=== PATIENT | female | born 1975 | race Hispanic/Latino ===

== ENCOUNTER 2017-09-01 16:42 | Emergency (ER) | payer SELFPAY ==
[2017-09-01 17:47] LABS: RAPID GROUP A STREP NEGATIVE (NEGATIVE)
== END 2017-09-01 18:03 | disposition home or self-care (01) ==
LOC: EDH 16:42
DX: J06.9 Acute upper respiratory infection, unspecified (principal)
CPT/HCPCS: 87804; 87880

== ENCOUNTER 2019-06-02 08:34 | Emergency (ER) | payer SELFPAY ==
[2019-06-02] MEDS ORDERED: HYDROCODONE/ACETAMINOPHEN 5/325 MG TAB ONE (09:05)
[2019-06-02 09:29] LABS: APPEARANCE,URINE Clear (CLEAR); BILIRUBIN,URINE Negative (NEGATIVE); COLOR,URINE Yellow (YELLOW); GLUCOSE, URINE (UA) Negative (NEGATIVE); KETONES,URINE Negative (NEGATIVE); LEUKOCYTE ESTERASE ,URINE Negative (NEGATIVE); NITRATE,URINE Negative (NEGATIVE); OCCULT BLOOD,URINE Negative (NEGATIVE); PROTEIN,URINE Negative (NEGATIVE); UROBILINOGEN,URINE 0.2 mg/dL (0.2-1.0)
[2019-06-02 09:31] LABS: HCG,QUAL RESULT NEGATIVE (NEGATIVE)
== END 2019-06-02 10:03 | disposition home or self-care (01) ==
LOC: EDH 08:34
DX: G89.29 Other chronic pain (principal); M54.6 Pain in thoracic spine; Z87.891 Personal history of nicotine dependence
CPT/HCPCS: 71046; 81003; 81025

== ENCOUNTER 2019-06-25 16:57 | Emergency (ER) | payer SELFPAY ==
[2019-06-25] MEDS ORDERED: ACETAMINOPHEN EXTRA STRENGTH 500 MG TABLET ONE (17:12)
[2019-06-25] MEDS ORDERED: ONDANSETRON ODT 4 MG TAB ONE (17:12)
[2019-06-25] MEDS ORDERED: OCTYL 2-CYANOACRYLATE 1 EACH TP ONE (18:03)
== END 2019-06-25 18:14 | disposition home or self-care (01) ==
LOC: EDH 16:57
DX: S06.0X0A Concussion without loss of consciousness, initial encounter (principal); S16.1XXA Strain of muscle, fascia and tendon at neck level, initial encounter; S01.01XA Laceration without foreign body of scalp, initial encounter; Y04.0XXA Assault by unarmed brawl or fight, initial encounter; Y93.89 Activity, other specified; Y92.098 Other place in other non-institutional residence as the place of occurrence of the external cause; Y99.8 Other external cause status
CPT/HCPCS: 12031

== ENCOUNTER 2021-09-28 16:40 | Emergency (ER) | payer OTHER ==
[~2021-09-28] VITALS: Ht 170.2 cm; Wt 91.6 kg
[2021-09-28] MEDS ORDERED: IBUPROFEN 800 MG TAB PO ONE (17:30)
[2021-09-28] MEDS ORDERED: IBUPROFEN 800 MG TAB ONE (17:49)
[2021-09-28] MEDS ORDERED: IBUP-2070 PO (18:55)
[2021-09-28 19:04] VITALS: BP 140/80
== END 2021-09-28 19:07 | disposition home or self-care (01) ==
LOC: EDH 16:40
DX: S62.175A Nondisplaced fracture of trapezium [larger multangular], left wrist, initial encounter for closed fracture (principal); X58.XXXA Exposure to other specified factors, initial encounter; Y93.89 Activity, other specified; Y92.89 Other specified places as the place of occurrence of the external cause; Y99.8 Other external cause status
CPT/HCPCS: 29125; 73110; 73130

== ENCOUNTER 2021-10-01 20:06 | Emergency (ER) | payer OTHER ==
[~2021-10-01] VITALS: Ht 170.2 cm; Wt 91.2 kg
[~2021-10-01 20:06] MED LIST: IBUP-2070 PO
[2021-10-01 21:03] VITALS: BP 130/92
== END 2021-10-01 22:36 | disposition left against medical advice (07) ==
LOC: EDH 20:06
DX: M25.532 Pain in left wrist (principal); Z53.21 Procedure and treatment not carried out due to patient leaving prior to being seen by health care provider

== ENCOUNTER 2023-08-28 12:18 | Emergency (ER) | payer OTHER ==
[~2023-08-28] VITALS: Ht 170.2 cm; Wt 99.8 kg
[2023-08-28 12:23] VITALS: BP 122/79; PULSE 85; RESP 17
[2023-08-28 13:13] LABS: BASOPHILS # (AUTO) 0.03 K/uL (0.00-0.20); BASOPHILS % (AUTO) 0.5 % (0.0-5.0); EOSINOPHILS # (AUTO) 0.09 K/uL (0.00-0.70); EOSINOPHILS % (AUTO) 1.4 % (0.0-8.0); HEMATOCRIT 40.6 % (36-48); IMMATURE GRANULOCYTE ABSOLUTE 0.02 K/uL (0-1); LYMPHOCYTES # (AUTO) 1.8 K/uL (1.0-4.8); LYMPHOCYTES % (AUTO) 27.5 % (21.0-51.0); MEAN CORPUSCULAR HGB CONC 33.7 g/dL (32.0-36.0); MONOCYTES # (AUTO) 0.3 K/uL (0.1-1.0); NEUTROPHILS # (AUTO) 4.3 K/uL (1.8-7.7); NEUTROPHILS % (AUTO) 65.3 % (40.0-77.0); PLATELET COUNT (AUTO) 310 K/uL (130-400); RED BLOOD CELL COUNT(AUTO) 4.89 MIL/uL (4.00-5.50); RED CELL DISTRIBUTION WIDTH 13.4 % (11.0-15.5); WHITE BLOOD COUNT (AUTO) 6.6 K/uL (4.8-10.8)
[2023-08-28] MEDS ORDERED: ONDANSETRON ODT 4MG TAB SL ONE (13:30)
[2023-08-28] MEDS ORDERED: DEXAMETHASONE SOD PHOSPHATE 4 MG/ML 1ML VIAL IM ONE (13:30)
[2023-08-28] MEDS ORDERED: MECLIZINE HCL 25 MG TABLET PO ONE (13:30)
[2023-08-28] MEDS ORDERED: METH4TAB3 PO (17:01)
[2023-08-28] MEDS ORDERED: MECL-302 PO (17:01)
== END 2023-08-28 17:09 | disposition home or self-care (01) ==
LOC: EDH 12:18
DX: H81.10 Benign paroxysmal vertigo, unspecified ear (principal); I10 Essential (primary) hypertension; H83.09 Labyrinthitis, unspecified ear; Z79.899 Other long term (current) drug therapy; Z98.890 Other specified postprocedural states
CPT/HCPCS: 99284; 84484; 85025; 36415; 96372; 93005; J1100

== ENCOUNTER → 2024-01-21 | Outpatient (CLI) | payer SELFPAY ==
[~2024-01-21] MED LIST changes: +COLC0.6C3 PO; +LISI1TAB51 PO
[2024-01-22 11:14] LABS: ANTI-SCLERODERMA 70 <0.2 AI (0.0-0.9)
== END | disposition home or self-care (01) ==
LOC: LAB 09:15
PROVIDERS: ATTEND Internal Medicine Cardiovascular Disease
DX: I10 Essential (primary) hypertension (principal)
CPT/HCPCS: 36415; 84443; 86038; 86215; 86235; 86431

== ENCOUNTER 2025-07-11 11:23 | Emergency (ER) | payer OTHER, SELFPAY ==
[~2025-07-11] VITALS: Ht 170.2 cm; Wt 104.3 kg
[~2025-07-11 11:23] MED LIST changes: +IBUP-1492 PO; -IBUP-2070 PO
[2025-07-11 11:34] VITALS: BP 154/89; PULSE 89; RESP 16; TEMP 98.2; O2SAT 98
--- NOTE | 2025-07-11 11:38 | ERN ---
ED Note History of Present Illness Stated Complaint: NECK PAIN/ BACK PAIN/ LEFT ARM TINGLES Chief Complaint: Neck Pain Time Seen by MD: 11:27 Dictation: Patient is a 50-year-old female here with multiple complaints to include posterior neck pain she has had for several months with numbness to her left arm. In addition she states she has been short of breath with generalized body weakness for the last several days. No fever no chills no nausea vomiting. She denies any chest pain. She states she has a primary care doctor, however has not seen him in three months. States she has had a prior history of a pericardial effusion and has been seen in the past by Dr. Choe. Allergies: Coded Allergies: No Known Allergies (Unverified Allergy, Unknown, 09/28/21) Home Meds Active Scripts Ibuprofen (Ibuprofen 800 mg Tab) 800 Mg Tab, 800 MG PO Q8H PRN for fever or pain, #30 TAB 0 Refills Prov:YIN MENARD CHEMIST WATER PURIFICATION 07/11/25 Albuterol Sulfate (Ventolin Hfa/Proventil Hfa/Proair Hfa) 90 Mcg Puff, 2 PUFF IH Q4H for WHEEZING, #1 INHALER 0 Refills Prov:YIN MENARD CHEMIST WATER PURIFICATION 07/11/25 Ibuprofen (Ibuprofen) 600 Mg Tablet, 600 MG PO Q8H for 7 Days, #21 TAB 0 Refills Prov:HENRIQUE FARR MD 12/17/23 Colchicine (Colchicine) 0.6 Mg Capsule, 0.6 MG PO DAILY for 30 Days, #30 CAP 0 Refills Prov:HENRIQUE FARR MD 12/17/23 Reported Medications Lisinopril/Hydrochlorothiazide (Lisinopril-Hctz 20-12.5 mg Tab) 20 Mg-12.5 Mg Tablet, 1 EACH PO DAILY, TAB 12/16/23 Past Medical History Past Medical History: Hypertension Additional Past Medical Hx: PERICARDIAL EFFUSION X 2 Surgical History: Other, Surgical History Other: PERICARDIO EFFUSION History: Not Applicable RN Note Reviewed/Agreed w/PFSH: Yes Review of System Dictation CONSTITUTIONAL: Negative except for HPI GB W HEAD/FACE: Negative except for HPI EENT: Negative except for HPI RESPIRATORY: Negative except for HPI shortness a breath GASTROINTESTINAL/ABDOMINAL: Negative except for HPI GENITOURINARY: Negative except for HPI MUSCULOSKELETAL: Negative except for HPI posterior neck pain INTEGUMENTARY: Negative except for HPI NEUROLOGICAL/PSYCH: Negative except for HPI HEMATOLOGIC/LYMPHATIC: Negative except for HPI All Systems Negative, Except as noted above. 13 point review of systems assessed and all negative except for above. Initial Vital Sign VS Vital Signs Date Time Temp Pulse Resp B/P (MAP) Pulse Ox O2 Delivery O2 Flow Rate FiO2 07/11/25 11:28 98.2 89 18 154/97 98 Room Air 0 07/11/25 11:34 21 Physical Exam Dictation A normal exam Vital Signs reviewed General Appearance: Alert, oriented x 3, no acute distress, well developed, nourished. Obese Head and Face: non-traumatic. Eyes: PERRL, pink conjunctivas, eyelid no trauma, anterior chamber with arcus senilis. Ears: Pinnas intact and no signs of trauma or erythema ear canals clear and no discharge TM no erythema Nose: No discharge, no bleeding. Oropharynx: Mouth normal, tongue pink, pharynx clear,no erythema, tonsils no exudates, no abscesses noted, mucous membrane moist Neck: Supple, non-tender, no thyromegaly, no masses, no JVD, no bruits Breast:Deferred Chest:No tenderness, no crepitus, no paradoxical movement, no retractions Lungs:Clear, well-ventilated, symmetric, no rales, no wheezing, no rhonchi, no stridor, good breath sounds bilaterally no tachypnea no retractions Heart: Regular rate, regular rhythm, no murmur, no gallops Vascular: no peripheral edema, Abdomen: Soft, positive bowel sounds, nondistended, no guarding, nontender, no rebound, no masses no hepatomegaly, no splenomegaly, no Boswell's sign, no hernias. Rectal: Deferred Genital: Deferred Neurological: Normal speech, motor function intact, sensory function intact NIH is 0 Musculoskeletal: Neck nontender, full range of motion, back nontender, full range of motion, Extremities: nontender, full range of motion Skin: Color pink, dry, no turgor, no rash, no lacerations, no abrasions, no contusions. Lymphatic: Deferred Results (Laboratory/Radiology) Laboratory/Radiology Laboratory Tests Test 07/11/25 11:47 White Blood Count 6.3 K/uL (4.8-10.8) Red Blood Count 4.97 MIL/uL (4.00-5.50) Hemoglobin 13.7 g/dL (12.0-16.0) Hematocrit 42.0 % (36-48) Mean Corpuscular Volume 84.5 fL (79-99) Mean Corpuscular Hemoglobin 27.6 pg (27.0-33.0) Mean Corpuscular Hemoglobin Concent 32.6 g/dL (32.0-36.0) Red Cell Distribution Width 13.4 % (11.0-15.5) Platelet Count 313 K/uL (130-400) Mean Platelet Volume 10.1 fL (7.5-10.5) Immature Granulocyte % (Auto) 0.2 % (0-1) Neutrophils (%) (Auto) 55.5 % (40.0-77.0) Lymphocytes (%) (Auto) 34.5 % (21.0-51.0) Monocytes (%) (Auto) 7.3 % (3.0-13.0) Eosinophils (%) (Auto) 1.9 % (0.0-8.0) Basophils (%) (Auto) 0.6 % (0.0-5.0) Neutrophils # (Auto) 3.5 K/uL (1.8-7.7) Lymphocytes # (Auto) 2.2 K/uL (1.0-4.8) Monocytes # (Auto) 0.5 K/uL (0.1-1.0) Eosinophils # (Auto) 0.12 K/uL (0.00-0.70) Basophils # (Auto) 0.04 K/uL (0.00-0.20) Absolute Immature Granulocyte (auto 0.01 K/uL (0-1) Nucleated Red Blood Cells 0.0 % (0.0-0.19) Sodium Level 138 mmol/L (136-145) Potassium Level 3.8 mmol/L (3.5-5.1) Chloride Level 101 mmol/L (101-111) Carbon Dioxide Level 29 mmol/L (21-32) Blood Urea Nitrogen 13 mg/dL (7-18) Creatinine 0.6 mg/dL (0.5-1.0) Glomerular Filtration Rate Calc 109 mL/min (>90) Random Glucose 89 mg/dL (70-105) Total Calcium 9.0 mg/dL (8.5-10.1) Troponin I High Sensitivity 8 ng/L (4-50) B-Type Natriuretic Peptide 23 pg/mL (0-100) e Neck, 4 View. CLINICAL HISTORY: Non trauma neck pain with numbness to left arm COMPARISON: None provided. FINDINGS: SOFT TISSUES: Unremarkable. No retropharyngeal soft tissue swelling or gas. EPIGLOTTIS: No epiglottic thickening. BONES: No acute osseous abnormality. IMPRESSION: No acute pathology evident on soft tissue plain films of the neck. /[place] M: CR Chest, 1 View. CLINICAL HISTORY: Non trauma neck pain with numbness to left arm COMPARISON: None provided. FINDINGS: LUNGS: There is no mass, infiltrate, or acute pulmonary abnormality. PLEURAL SPACES: No evidence of pleural effusion or pneumothorax. MEDIASTINUM: The cardiomediastinal silhouette is within normal limits. BONES: No aggressive appearing osseous lesion seen. IMPRESSION: No acute cardiopulmonary pathology is evident. /[place] Labs Reviewed?: Yes EKG Comment: 1148/EKG sinus rhythm/heart rate 80/axis normal/nonspecific changes in anterior leads ED Course ED Course Orders Procedure Category Date Status Time B-Type Natriuretic LAB 07/11/25 Complete Peptide 11:35 Cerv Spine 2-3vws RAD 07/11/25 Resulted 11:35 Cbc With Differential LAB 07/11/25 Complete 11:35 Chest 1vw RAD 07/11/25 Resulted 11:35 12 Lead Ekg Tracing- EKG 07/11/25 Complete Technical 11:35 Troponin I High LAB 07/11/25 Complete Sensitivity 11:35 Basic Metabolic Panel LAB 07/11/25 Complete 11:35 Vital Signs Date Time Temp Pulse Resp B/P (MAP) Pulse Ox O2 Delivery O2 Flow Rate FiO2 07/11/25 11:34 98.2 89 16 154/89 98 Room Air* 0 21 07/11/25 11:28 98.2 89 18 154/97 98 Room Air 0 1240/SPOKE WITH PATIENT AT LENGTH REGARDING CLINICAL FINDINGS TO INCLUDE CERVICAL SPINE EKG CHEST X-RAY LABS BNP ETC. SHE IS AWARE THAT HER WORKUP IS UNREMARKABLE 1300/PATIENT IS REQUESTING METHOCARBAMOL UNTIL SHE CAN SEE HER PRIMARY CARE DOCTOR. I AGREED THE SUPPLIER WITHOUT AND HAVE HER SEE YOUR DOCTOR NEXT 1-2 DAYS HEART Score Response (Comments) Value History: Low suspicion (0) 0 Age: 45-65yrs (+1) 1 Risk Factors: 1-2 risk factors (+1) 1 Initial Troponin: Normal limit (0) 0 Total 2 Medical Decision Making MDM MDM: DIFFERENTIAL DIAGNOSIS: ACS/AMI/ELECTROLYTE IMBALANCE/DEHYDRATION/PNEUMONIA/BRONCHITIS/PERICARDIAL EFFUSION SARS RATIONALE: TESTS CONSIDERED AND ORDERED SECONDARY TO SHARED DECISION MAKING INCLUDE: LABS/EKG/RADIOLOGY/SARS COVID PREVIOUS OUTSIDE RECORDS REVIEWED: OLD ER VISITS. RISK OF COMPLICATION AND/OR MORBIDITY OR MORTALITY OF PATIENT MANAGEMENT: NONE MEDICATIONS-PER MEDICATION RECONCILIATION NEED FOR HOSPITALIZATION: PATIENT DOES NOT MEET CRITERIA FOR HOSPITALIZATION. NONE NEED FOR EMERGENCY MAJOR/MINOR SURGERY: NO THERE ARE NO SOCIAL CONCERNS WITH THIS PATIENT. PRESCRIPTION DRUG MANAGEMENT ALBUTEROL PRESCRIPTIONS WILL INCLUDE SYMPTOMATIC CARE PATIENT'S PRIOR EXTERNAL MEDICAL RECORDS FROM OTHER ER VISITS WERE REVIEWED BY ME INDICATED. PRIOR TESTING AND RESULTS FROM PREVIOUS VISITS WERE REVIEWED. PRIOR TESTS WERE TAKEN INTO ACCOUNT WITH MEDICAL DECISION MAKING AND RESOURCE UTILIZATION, INDEPENDENT HISTORIAN/HISTORIANS WERE USED TO OBTAIN COMPLETE MEDICAL HISTORY. I INDEPENDENTLY INTERPRETED THE TEST THAT WERE PERFORMED, RESULTS WERE REVIEWED BY ME AND CONSIDERED FINDINGS ON RADIOLOGY IF ORDERED. MEDICAL MANAGEMENT AND EXAMINATION INTERPRETATION DISCUSSIONS WERE HAD BY ME WITH OTHER QUALIFIED HEALTHCARE PROFESSIONALS INDICATED FOR THE PATIENT'S CARE. DX & DISP Disposition: Discharge Departure Impression: Primary Impression: Neck pain Additional Impressions: Shortness of breath, Arm paresthesia, left Condition: Stable Scripts Methocarbamol (Methocarbamol) 750 Mg Tablet 1 TAB PO TID for 10 Days, #30 TAB 0 Refills Prov: YIN MENARD CHEMIST WATER PURIFICATION 07/11/25 Ibuprofen (Ibuprofen 800 mg Tab) 800 Mg Tab 800 MG PO Q8H PRN for fever or pain, #30 TAB 0 Refills Prov: YIN MENARD CHEMIST WATER PURIFICATION 07/11/25 Albuterol Sulfate (Ventolin Hfa/Proventil Hfa/Proair Hfa) 90 Mcg Puff 2 PUFF IH Q4H for WHEEZING, #1 INHALER 0 Refills Prov: YIN MENARD CHEMIST WATER PURIFICATION 07/11/25 Additional Instructions: FOLLOW-UP WITH PRIMARY CARE PROVIDER IN 1 TO 2 DAYS. TAKE MEDICATIONS DIRECTED HERE IN THE EMERGENCY ROOM. OKAY TO CONTINUE HOME MEDICATIONS UNLESS OTHERWISE DISCUSSED DURING YOUR VISIT IN THE EMERGENCY ROOM TODAY. RETURN TO YOUR NEAREST EMERGENCY ROOM IF SYMPTOMS WORSEN OR IF THERE IS NO IMPROVEMENT. CALL 911 IF YOU NEED IMMEDIATE ASSISTANCE. TAKE TYLENOL OR MOTRIN QCAM-[id number]-SARREZY NEEDED AND IF NO CONTRAINDICATIONS ARE PRESENT. INCREASE ORAL HYDRATION. A WOUND CULTURE OR URINE CULTURE WAS ORDERED HERE IN THE EMERGENCY ROOM DEPARTMENT PLEASE FOLLOW-UP WITH PRIMARY CARE PROVIDER AND ADVISE THEM TO GET REPEAT PORTS FROM OUR FACILITY. IF YOU HAD ANY ANGEL WRAP/SPLINTS THAT WERE APPLIED HERE, PLEASE DO NOT REMOVE THEM UNTIL YOU SEE YOUR PRIMARY CARE OR SPECIALTY. USE ALBUTEROL INHALER EVERY 4 HOURS WHILE AWAKE FOR THE NEXT TWO DAYS. TAKE IBUPROFEN NEEDED FOR NECK PAIN. FOLLOW UP WITH THE YOUR PRIMARY CARE DOCTOR, IN THE NEXT 1-2 DAYS FOR WORKUP AND MANAGE NO WORK UNTIL CLEARED BY HER PRIMARY CARE DOCTOR. Referrals: SELF,REFERRAL (PCP) Time of Disposition: 12:50 I have reviewed the case, and I agree with, Diagnosis and Plan YIN MENARD Jul 11, 2025 11:38
[2025-07-11 11:52] LABS: IMMATURE GRANULOCYTE ABSOLUTE 0.01 K/uL (0-1); NUCLEATED RED BLOOD CELLS 0.0 % (0.0-0.19); PLATELET COUNT (AUTO) 313 K/uL (130-400); RED BLOOD CELL COUNT(AUTO) 4.97 MIL/uL (4.00-5.50); RED CELL DISTRIBUTION WIDTH 13.4 % (11.0-15.5); WHITE BLOOD COUNT (AUTO) 6.3 K/uL (4.8-10.8)
--- NOTE | 2025-07-11 12:04 | EKG ---
[facility] Test Date: 2025-07-11 Test Time: 11:36:46 Pat Name: JUAN DIEGO OGDEN Department: [facility] Room: Gender: F [place] Department Head: [id number] : 1975 Requested By: YIN MENARD Order Number: [id number] Reading MD: Howard Durbin Measurements Intervals [place] Rate: 80 P: 22 [place]: 162 QRS: -9 QRSD: 93 T: 7 QT: 375 QTc: 434 Interpretive Statements Sinus rhythm Low voltage, precordial leads Consider anterior infarct Compared to ECG 12/16/2023 06:10:56 No significant changes Electronically Signed On 07-11-2025 18:22:12 PROCESS LINE OPERATOR by Howard Durbin Please click the below link to view image of tracing.
[2025-07-11 12:18] LABS: CREATININE 0.6 mg/dL (0.5-1.0); GLOMERULAR FILTR. RATE CALC 109.0 mL/min (>90); GLUCOSE,RANDOM 89.0 mg/dL (70-105); SODIUM SERUM 138.0 mmol/L (136-145); UREA NITROGEN, BLOOD 13.0 mg/dL (7-18)
--- NOTE | 2025-07-11 12:20 | HMCIMG ---
EXAM: CR Soft Tissue Neck, 4 View. CLINICAL HISTORY: Non trauma neck pain with numbness to left arm COMPARISON: None provided. FINDINGS: SOFT TISSUES: Unremarkable. No retropharyngeal soft tissue swelling or gas. EPIGLOTTIS: No epiglottic thickening. BONES: No acute osseous abnormality. IMPRESSION: No acute pathology evident on soft tissue plain films of the neck. /[place]
--- NOTE | 2025-07-11 12:20 | HMCIMG ---
EXAM: CR Chest, 1 View. CLINICAL HISTORY: Non trauma neck pain with numbness to left arm COMPARISON: None provided. FINDINGS: LUNGS: There is no mass, infiltrate, or acute pulmonary abnormality. PLEURAL SPACES: No evidence of pleural effusion or pneumothorax. MEDIASTINUM: The cardiomediastinal silhouette is within normal limits. BONES: No aggressive appearing osseous lesion seen. IMPRESSION: No acute cardiopulmonary pathology is evident. /[place]
[2025-07-11] MEDS ORDERED: IBUP-2077 PO (12:51)
[2025-07-11] MEDS ORDERED: ALBUHFA IH (12:51)
[2025-07-11] MEDS ORDERED: METH-812 PO (12:59)
--- NOTE | 2025-07-11 13:04 | NUR ---
PT AAOX4 STABLE, VITALS WNL, PT GIVEN INSTRUCTION FOR HOME, RX EMAILED TO PT PHARMACY WILL START TODAY. PT GIVEN EXCUSE FOR WORK FOR ONE WEEK UNTILL CLEARED BY PCP TO GO BACK TO WORK. PT HAS NO IV AT THIS TIME. PT WALKED TO ED CECEBY, PT DRIVEN HOME BY MOTHER.
== END 2025-07-11 13:11 | disposition home or self-care (01) ==
LOC: EDH 11:23
DX: M54.2 Cervicalgia (principal); R06.02 Shortness of breath; R20.2 Paresthesia of skin; I10 Essential (primary) hypertension; Z79.899 Other long term (current) drug therapy
CPT/HCPCS: 36415; 71045; 72040; 80048; 83880; 84484; 85025; 93005; 99285